=== PATIENT | female | born 1965 | race Caucasian/White ===

== ENCOUNTER 2019-05-03 11:02 | Day surgery (SDC) | payer BC ==
[~2019-05-03 11:02] MED LIST: Lactated Ringers 1,000 ML IV SCH; Midazolam 1 MG/ML 2 ML SDV ONE; Propofol 200 MG/20 ML SDV ONE; Sodium Chloride 0.9% 10 ML Syringe FLUSH PRN
[2019-05-03] MEDS ORDERED: Propofol 200 MG/20 ML SDV IV ONE (11:03)
[2019-05-03] MEDS ORDERED: Midazolam 1 MG/ML 2 ML SDV IV ONE (11:03)
[2019-05-03] MEDS ORDERED: Propofol 200 MG/20 ML SDV ONE (11:21)
--- NOTE | 2019-05-03 11:50 | PCM.PN ---
- General Info Date of Service: 05/03/19 - Review of Systems Systems Review Comment:: 53-year-old female referred for her initial screening colonoscopy. She denies any recent change in bowel pattern. She says that she has an aunt who had colon cancer. She is medically stable to proceed today. Her recent history and physical is reviewed and no significant changes are noted. I discussed the proposed colonoscopy with the patient. Risks such as but not limited to bleeding and GI injury reviewed. She agrees to proceed. - Patient Data Vitals - Most Recent: Last Vital Signs Temp 98.1 F 05/03/19 11:00 Pulse 70 05/03/19 11:00 Resp 16 05/03/19 11:00 BP 97/69 05/03/19 11:00 Pulse Ox 96 05/03/19 11:00 Lab Results Last 24 Hours: Laboratory Results - last 24 hr 05/03/19 Range/Units 11:25 HCG, Qual Negative (NEGATIVE) Med Orders - Current: Current Medications Lactated Ringer's (Ringers, Lactated) 1,000 mls @ 50 mls/hr IV ASDIRECTED CAROLE Sodium Chloride (Saline Flush) 10 ml FLUSH Q8HR PRN PRN Reason: keep vein open - Problem List Review Problem List Initiated/Reviewed/Updated: Yes - My Orders Last 24 Hours: My Active Orders 05/02/19 14:28 Resuscitation Status Routine 05/03/19 11:00 Peripheral IV Care [RC] . DIRECTED Vital Signs [RC] PER UNIT ROUTINE Lactated Ringers [Ringers, Lactated] 1,000 ml IV ASDIRECTED Sodium Chloride 0.9% [Saline Flush] 10 ml FLUSH Q8HR PRN Peripheral IV Insertion Adult [OM.PC] Routine 05/03/19 11:30 Patient to Empty Bladder [RC] ASDIRECTED 05/03/19 12:00 Verify Patient Consent Obtain [RC] ASDIRECTED 05/03/19 Breakfast Nothing Per Oral Diet [DIET] - Assessment Assessment:: Colon cancer screening - Plan Plan:: Colonoscopy
--- NOTE | 2019-05-03 12:39 | PCM.OPNOTE ---
- General Post-Op/Procedure Note Date of Surgery/Procedure: 05/03/19 Operative Procedure(s): Colonoscopy Findings: Normal appearing colon Pre Op Diagnosis: Colon Cancer Screening Post-Op Diagnosis: Same Anesthesia Technique: MAC Primary Surgeon: Lincoln Edmondson Pathology: none EBL in mLs: 0 Complications: None Condition: Good
--- NOTE | 2019-05-03 17:59 | OR ---
DATE OF SURGERY: 05/03/2019 SURGEON: Lincoln Edmondson MD PREOPERATIVE DIAGNOSIS: Colon cancer screening. POSTOPERATIVE DIAGNOSIS: Normal colon. OPERATION PERFORMED: Colonoscopy. INDICATIONS FOR SURGERY: This 53-year-old female presents today for her initial screening colonoscopy. She denies any recent changes in bowel pattern. FINDINGS: The patient's colon appears normal. No polyps or other gross abnormalities were seen. PROCEDURE: The patient was taken to the operating room. She was given intravenous sedation and with her in the left lateral decubitus position, digital rectal exam was performed. No rectal masses were noted. The Olympus colonoscope was inserted into the rectum. Retroflexed examination of the rectal canal is performed. The scope was then carefully advanced under direct visualization through the entire length of the colon until the cecum is reached. The colon was somewhat tortuous, but with persistent careful manipulation, the cecum was able to be accessed. The light is noted to transilluminate the abdominal wall in the right lower quadrant. The ileocecal valve and appendiceal orifice were also clearly examined. After examining the cecum, the scope was slowly withdrawn, sequentially re-examining the colonic segments until the entire colon and rectum had been fully examined. The scope was removed and the patient was taken from the operating room in satisfactory condition. ESTIMATED BLOOD LOSS: Zero. COMPLICATIONS: None. PROGNOSIS: Good. /[id number]/MODL
== END 2019-05-03 14:00 | disposition home or self-care (01) ==
LOC: KA.SDS 11:02
PROVIDERS: ATTEND Surgery
DX: Z12.11 Encounter for screening for malignant neoplasm of colon (principal); Z80.0 Family history of malignant neoplasm of digestive organs
CPT/HCPCS: 36415; 45378; 84703; J2250; J2704; J7120